=== PATIENT | male | born 1995 | race African-American/Black ===

== ENCOUNTER 2017-03-01 13:50 | Emergency (ER) | payer MEDICAID, MEDICARE, OTHER ==
[~2017-03-01] VITALS: Ht 177.8 cm; Wt 47.5 kg
[~2017-03-01 13:50] MED LIST: CHLO.12%30 SWISH-SPIT; HIBI4LIQ TOPICAL; NUTR1POW
[2017-03-01 13:51] VITALS: BP 139/62; PULSE 112; RESP 20; TEMP 99; O2SAT 98
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
[2017-03-01] MEDS ORDERED: PERC10TA27 PO (15:22)
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
[2017-03-01] MEDS ORDERED: IBUPROFEN 800 MG TAB PO ONE (15:45)
== END 2017-03-01 16:10 | disposition home or self-care (01) ==
LOC: NEPC 13:50
DX: M25.551 Pain in right hip (principal); M25.531 Pain in right wrist; G82.20 Paraplegia, unspecified; J45.909 Unspecified asthma, uncomplicated; Z99.3 Dependence on wheelchair; V09.20XA Pedestrian injured in traffic accident involving unspecified motor vehicles, initial encounter; Y93.9 Activity, unspecified; Y92.410 Unspecified street and highway as the place of occurrence of the external cause; Y99.8 Other external cause status
CPT/HCPCS: 73502; 99283

== ENCOUNTER 2017-03-25 17:23 | Emergency (ER) | payer MEDICARE, OTHER ==
[~2017-03-25 17:23] MED LIST changes: -CHLO.12%30 SWISH-SPIT; -HIBI4LIQ TOPICAL; -NUTR1POW; +PERC10TA27 PO
[2017-03-25 17:26] VITALS: BP 114/59; PULSE 99; RESP 20; TEMP 98.6; O2SAT 97
== END 2017-03-25 18:50 | disposition left against medical advice (07) ==
LOC: NED 17:23
DX: Z53.21 Procedure and treatment not carried out due to patient leaving prior to being seen by health care provider (principal)
CPT/HCPCS: 99281

== ENCOUNTER 2017-04-24 13:04 | Emergency (ER) | payer MEDICARE, MEDICAID ==
[~2017-04-24] VITALS: Ht 175.3 cm; Wt 47.7 kg
[2017-04-24 13:33] VITALS: BP 122/66; PULSE 105; RESP 18; TEMP 98.9; O2SAT 99
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
== END 2017-04-24 17:36 ==
LOC: NEPK 13:04
DX: M54.6 Pain in thoracic spine (principal); R51 Headache; R00.0 Tachycardia, unspecified; J45.909 Unspecified asthma, uncomplicated; F41.9 Anxiety disorder, unspecified; G82.20 Paraplegia, unspecified; Z79.899 Other long term (current) drug therapy
CPT/HCPCS: 72131

== ENCOUNTER 2017-04-28 12:17 | Emergency (ER) | payer MEDICARE, OTHER ==
[~2017-04-28] VITALS: Ht 175.3 cm; Wt 48.0 kg
[2017-04-28 12:18] VITALS: BP 129/58; PULSE 59; RESP 16; TEMP 98.3; O2SAT 99
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
[2017-04-28] MEDS ORDERED: DULC10SU3 RECTAL (13:56)
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
[2017-04-28] MEDS ORDERED: BISACODYL 10 MG SUPP RECTAL ONE (14:00)
[2017-04-28 14:24] VITALS: BP 120/55
== END 2017-04-28 14:25 | disposition home or self-care (01) ==
LOC: NEPD 12:17
DX: K59.00 Constipation, unspecified (principal)
CPT/HCPCS: 99282

== ENCOUNTER 2017-06-07 08:18 | Emergency (ER) | payer MEDICARE, MEDICAID ==
[~2017-06-07] VITALS: Ht 175.3 cm; Wt 47.5 kg
[~2017-06-07 08:18] MED LIST changes: +DULC10SU3 RECTAL
[2017-06-07 08:20] VITALS: BP 140/67; PULSE 70; RESP 20; TEMP 98; O2SAT 99
[2017-06-07] MEDS ORDERED: [UNRECOGNIZED DRUG - CODE] TOPICAL (09:48)
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
[2017-07-09] MEDS ORDERED: MUPI2OIN TOPICAL (16:10)
[2017-07-18] MEDS ORDERED: CEPH250C PO (09:52)
[2017-07-18] MEDS ORDERED: [UNRECOGNIZED DRUG - SUPPLY] (09:52)
== END 2017-06-07 10:04 | disposition home or self-care (01) ==
LOC: NEPD 08:18
DX: L89.322 Pressure ulcer of left buttock, stage 2 (principal); G82.20 Paraplegia, unspecified; Z87.09 Personal history of other diseases of the respiratory system; Z86.59 Personal history of other mental and behavioral disorders
CPT/HCPCS: 99283

== ENCOUNTER 2018-02-05 14:10 | Emergency (ER) | payer MEDICAID, MEDICARE ==
[~2018-02-05 14:10] MED LIST changes: +CEPH250C PO; -DULC10SU3 RECTAL; +MUPI2OIN TOPICAL; -PERC10TA27 PO; +WHEEMIS3; +[UNRECOGNIZED DRUG - SUPPLY]
[2018-02-05 14:26] VITALS: BP 132/61; PULSE 67; RESP 20; TEMP 98.3; O2SAT 100
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
== END 2018-02-05 16:58 | disposition home or self-care (01) ==
LOC: NEPK 14:10
DX: Z46.6 Encounter for fitting and adjustment of urinary device (principal); G82.20 Paraplegia, unspecified; J45.909 Unspecified asthma, uncomplicated; F41.9 Anxiety disorder, unspecified; F12.90 Cannabis use, unspecified, uncomplicated; Z87.440 Personal history of urinary (tract) infections
CPT/HCPCS: 99281